=== PATIENT | female | born 1970 | race Caucasian/White ===

== ENCOUNTER 2022-12-02 12:30 | Emergency (ER) | payer OTHER ==
[~2022-12-02] VITALS: Ht 170.2 cm; Wt 85.3 kg
[2022-12-02 12:35] VITALS: BP 148/83
--- NOTE | 2022-12-02 12:37 | ED Abdominal Pain ---
General Chief Complaint: Abdominal/GI Problems Stated Complaint: LT FLANK PAIN/ABD History of Present Illness Date Seen by Provider: December 02, 2022 Time Seen by Provider: 12:37 Initial Comments 51-year-old female presents with left flank pain. She presented to primary care office where she was given some Toradol and was found to have some hematuria. Patient is going on a trip and they want to have her checked for a kidney stone so they sent her to the ER for a CT scan. Allergies and Home Medications Patient Home Medication List Home Medication List Reviewed: Yes Review of Systems Review of Systems Constitutional: No chills, No fever EENTM: No Symptoms Reported Respiratory: No Symptoms Reported Cardiovascular: No Symptoms Reported Gastrointestinal: See HPI Genitourinary: See HPI, Flank Pain, Hematuria Musculoskeletal: no symptoms reported Skin: no symptoms reported Psychiatric/Neurological: No Symptoms Reported Endocrine: No Symptoms Reported Physical Exam Vital Signs Vital Signs - First Documented 12/02/22 12:35 Temp 36.6 Pulse 97 Resp 19 B/P (MAP) 148/83 (104) O2 Delivery Room Air Capillary Refill : Height/Weight/BMI Height: '" Weight: lbs. oz. kg; BMI Method: General Appearance: WD/WN, no apparent distress Neck: full range of motion, supple Respiratory: lungs clear, normal breath sounds Cardiovascular: normal peripheral pulses, regular rate, rhythm Gastrointestinal: soft Back: CVA tenderness (L) (Mild) Skin: normal color, warm/dry Lymphatic: no adenopathy Progress/Results/Core Measures Results/Orders My Orders Orders - GRACE ATKINS DO Ct Abdomen/Pelvis Wo (12/02/22 12:44) Vital Signs/I&O 12/02/22 12:35 Temp 36.6 Pulse 97 Resp 19 B/P (MAP) 148/83 (104) O2 Delivery Room Air Progress Progress Note : Progress Note Patient CT was ordered reviewed with final interpretation per radiology report. Patient with 3 mm proximal ureteral stone. Patient's primary care provider is going to order her Flomax she stated. I will add her some Reglan to help with the nausea vomiting and pain. She should drink plenty of fluids. Follow-up with her primary care provider as needed. Patient was stable and discharged Diagnostic Imaging Diagonstic Imaging: CT Plain Films/CT/US/NM/MRI: abdomen, pelvis Comments Date of Exam:12/02/22 CT ABDOMEN/PELVIS WO PROCEDURE: CT abdomen and pelvis without contrast. TECHNIQUE: Multiple contiguous axial images were obtained through the abdomen and pelvis without the use of intravenous contrast. Auto Exposure Controls were utilized during the CT exam to meet ALARA standards for radiation dose reduction. INDICATION: Hematuria, left flank pain. FINDINGS: Elongated calculus or adjacent obstructing calculi in the proximal left ureter in aggregate measured a cephalocaudal length of 6.6 mm and with a maximal transverse/obstructing dimension of 3 mm at the level of the L3 superior endplate. There is mild upstream left hydronephrosis but no substantial perinephric or periureteric edema. There is a punctate nonobstructing 1 mm stone within the contralateral right renal upper pole calyx. No additional ureteral or bladder stones. Uterus and adnexa unremarkable. There is extra ureteral pelvic phleboliths incidentally. There is no appendicitis or diverticulitis. There is no bowel obstruction. Liver, gallbladder, bile ducts, spleen, adrenals and pancreas unremarkable. IMPRESSION: Proximal left ureteral calculus 3 mm in axial dimension results in mild upstream hydroureter. Punctate nonobstructing right kidney stone. No other significant finding. Reviewed: Reviewed by Me, Reviewed/Discussed Departure Impression Primary Impression: Calculus of proximal left ureter Disposition: HOME, SELF-CARE Condition: Stable Departure-Patient Inst. Referrals: JANINA RENTERIA MD (PCP) Primary Care Physician Patient Instructions: Kidney Stones in Adults, Kidney Stone Diet Add. Discharge Instructions: Drink plenty of fluids, follow-up with your primary care provider as needed. please strain your urine All discharge instructions reviewed with patient and/or family. Voiced understanding. Scripts Metoclopramide HCl (Reglan) 5 Mg Tablet 5 MG PO TID PRN for NAUSEA/VOMITING, #15 TAB Prov: GRACE ATKINS DO 12/02/22 VALENCIA ATKINSR Kevin DO December 02, 2022 12:37
--- NOTE | 2022-12-02 13:08 | Diagnostic Imaging Report ---
PROCEDURE: CT abdomen and pelvis without contrast. TECHNIQUE: Multiple contiguous axial images were obtained through the abdomen and pelvis without the use of intravenous contrast. Auto Exposure Controls were utilized during the CT exam to meet ALARA standards for radiation dose reduction. INDICATION: Hematuria, left flank pain. FINDINGS: Elongated calculus or adjacent obstructing calculi in the proximal left ureter in aggregate measured a cephalocaudal length of 6.6 mm and with a maximal transverse/obstructing dimension of 3 mm at the level of the L3 superior endplate. There is mild upstream left hydronephrosis but no substantial perinephric or periureteric edema. There is a punctate nonobstructing 1 mm stone within the contralateral right renal upper pole calyx. No additional ureteral or bladder stones. Uterus and adnexa unremarkable. There is extra ureteral pelvic phleboliths incidentally. There is no appendicitis or diverticulitis. There is no bowel obstruction. Liver, gallbladder, bile ducts, spleen, adrenals and pancreas unremarkable. IMPRESSION: Proximal left ureteral calculus 3 mm in axial dimension results in mild upstream hydroureter. Punctate nonobstructing right kidney stone. No other significant finding. Dictated by: Dictated on workstation # [id number]
[2022-12-02] MEDS ORDERED: METO5TAB75 PO (13:20)
== END 2022-12-02 13:26 | disposition home or self-care (01) ==
LOC: ER FS 12:33
DX: N20.1 Calculus of ureter (principal)
CPT/HCPCS: 74176; 99281